=== PATIENT | male | born 1970 | race Asian ===

== ENCOUNTER 2017-05-06 21:00 | Inpatient (IN) | END 2017-05-29 12:15 | DRG 65 | DX: I63.9 Cerebral infarction, unspecified (principal); I67.4 Hypertensive encephalopathy; R65.10 Systemic inflammatory response syndrome (SIRS) of non-infectious origin without acute organ dysfunction; G81.91 Hemiplegia, unspecified affecting right dominant side; R47.01 Aphasia; R00.1 Bradycardia, unspecified; F17.200 Nicotine dependence, unspecified, uncomplicated; E78.5 Hyperlipidemia, unspecified; R33.9 Retention of urine, unspecified; R29.810 Facial weakness ==